=== PATIENT | male | born 1985 | race African-American/Black ===

== ENCOUNTER 2021-06-12 18:31 | Emergency (ER) | payer SELFPAY ==
[~2021-06-12] VITALS: Ht 175.3 cm; Wt 78.0 kg
[~2021-06-12 18:31] MED LIST: PALI9TAB
[2021-06-12 19:03] VITALS: BP 179/89
--- NOTE | 2021-06-12 19:28 | PHYS DOC ---
Past Medical History Past Medical History: Anxiety Additional Past Medical Histor: Seasonal allergies (ANNA MARIE SARKAR APRN) Past Surgical History: No Surgical History (ANNA MARIE SARKAR APRN) Alcohol Use: None Drug Use: None (ANNA MARIE SARKAR APRN) General Adult EDM: Chief Complaint: SEXUALLY TRANSMITTED DISEASE HPI: HPI: Patient is a 35 year old male who presents with wanting a sexually-transmitted disease test including HIV, syphilis, chlamydia and gonorrhea, check for anal warts or herpes. Patient states for at least a year he has noticed some hard nodules around his rectal area. He does have [id number] male sexual intercourse. States that he has been partner has been ongoing since does not patient seem to have any symptoms. But he is wanting to be checked. He denies nausea, vomiting, diarrhea, abdominal pain, rectal bleeding, fever, urinary symptoms, penile discharge, Back pain. He denies any other past medical history. (ANNA MARIE SARKAR APRN) Review of Systems: Review of Systems: Constitutional: Denies fever or chills. [] Eyes: Denies change in visual acuity. [] HENT: Denies nasal congestion or sore throat. [] Respiratory: Denies cough or shortness of breath. [] Cardiovascular: Denies chest pain or edema. [] GI: Denies abdominal pain, nausea, vomiting, bloody stools or diarrhea. [] : Denies dysuria. [] Musculoskeletal: Denies back pain or joint pain. [] Integument: Denies rash. + Chronic anal rectal bumps [] Neurologic: Denies headache, focal weakness or sensory changes. [] Endocrine: Denies polyuria or polydipsia. [] Lymphatic: Denies swollen glands. [] Psychiatric: Denies depression or anxiety. [] (ANNA MARIE SARKAR APRN) Heart Score: C/O Chest Pain: No Risk Factors: Risk Factors: DM, Current or recent (<one month) smoker, HTN, HLP, family hist ory of CAD, obesity. Risk Scores: Score 0 - 3: 2.5% MACE over next 6 weeks - Discharge Home Score 4 - 6: 20.3% MACE over next 6 weeks - Admit for Clinical Observation Score 7 - 10: 72.7% MACE over next 6 weeks - Early Invasive Strategies (ANNA MARIE SARKAR APRN) Allergies: Allergies: Allergies Coded Allergies Type Severity Reaction Last Updated Verified No Known Drug Allergies 06/12/21 No (ANNA MARIE SARKAR APRN) Physical Exam: PE: Constitutional: Well developed, well nourished, no acute distress, non-toxic appearance. [] HENT: Normocephalic, atraumatic, bilateral external ears normal, oropharynx moist, no oral exudates, nose normal. [] Eyes: PERRLA, EOMI, conjunctiva normal, no discharge. [] Neck: Normal range of motion, no tenderness, supple, no stridor. [] Cardiovascular:Heart rate regular rhythm, no murmur [] Lungs & Thorax: Bilateral breath sounds clear to auscultation [] Abdomen: Bowel sounds normal, soft, no tenderness, no masses, no pulsatile masses. [] Skin: Warm, dry, no erythema, no rash. [] Back: No tenderness, no CVA tenderness. [] Extremities: No tenderness, no cyanosis, no clubbing, ROM intact, no edema. [] Neurologic: Alert and oriented X 3, normal motor function, normal sensory function, no focal deficits noted. [] Psychologic: Affect normal, judgement normal, mood normal. [] Normal physical exam (ANNA MARIE SARKAR APRN) Current Patient Data: Vital Signs: Vital Signs Date Time Temp Pulse Resp B/P (MAP) Pulse Ox O2 Delivery O2 Flow Rate FiO2 06/12/21 19:03 98.5 90 17 179/89 96 98.5 (ANNA MARIE SARKAR APRN) EKG: EKG: [] (ANNA MARIE SARKAR APRN) Radiology/Procedures: Radiology/Procedures: [] (ANNA MARIE SARKAR APRN) Course & Med Decision Making: Course & Med Decision Making Pertinent Labs and Imaging studies reviewed. (See chart for details) See HPI. Ambulatory with a steady gait. Speaks in full clear sentences. Skin pink warm and dry. No anal warts or sore seen. No penile discharge or sores. Abdomen soft and nontender. Patient will have to go to health department for a HIV test or anal warts testing. Is tested for chlamydia and gonorrhea and syphilis today. [] (ANNA MARIE SARKAR APRN) Dragon Disclaimer: Abel Disclaimer: This electronic medical record was generated, in whole or in part, using a voice recognition dictation system. (ANNA MARIE SARKAR APRN) Departure Departure Impression: Primary Impression: Concern about sexually transmitted disease in male without diagnosis Disposition: HOME / SELF CARE / HOMELESS Condition: STABLE Referrals: NON,STAFF (PCP) Patient Instructions: Sexually Transmitted Disease Additional Instructions: Follow-up with the health department or your primary care for further testing such as HIV or renal warts or herpes. Chlamydia and gonorrhea results will be back in 48 hours and you will only be called if something is positive.. He can return for any other concerns or symptoms. Attending Signature Attending Signature I have reviewed the PA/CERTIFIED MEDICAL BILLER's note and plan of care. I was available for consultation as needed during the patient's visit in the emergency department. I agree with the clinical impression, plan, and disposition. (LUCIO MEDINA DO) ANNA MARIE SARKAR APRN Jun 12, 2021 19:28 LUCIO MEDINA DO Jun 12, 2021 22:51
[2021-06-12 19:51] LABS: BILIRUBIN,URINE SMALL (NEG); CLARITY,URINE CLEAR; COLOR,URINE AMBER; NITRITE,URINE NEGATIVE (NEG); PH,URINE 6.5 (<5.0-8.0); PROTEIN,URINE 30 mg/dL (NEG-TRACE)
[2021-06-12 19:57] LABS: BACTERIA,URINE 0 /HPF (0-FEW); RBC,URINE 0 /HPF (0-2); WBC,URINE 0 /HPF (0-4)
== END 2021-06-12 20:30 | disposition home or self-care (01) ==
LOC: ER 18:31
DX: Z20.2 Contact with and (suspected) exposure to infections with a predominantly sexual mode of transmission (principal); F41.9 Anxiety disorder, unspecified
CPT/HCPCS: 36415; 81001; 86592; 87491; 87591; 99283